=== PATIENT | male | born 1975 | race Caucasian/White ===

== ENCOUNTER 2023-12-14 14:25 | Inpatient (IN) | payer OTHER ==
[2023-12-14 16:55] VITALS: BMI 35.1
[2023-12-14] MEDS ORDERED: ONDANSETRON 4 MG/2 ML VIAL IV PRN (17:32)
[2023-12-14] MEDS: VANCOMYCIN 1 GM in NA CHLORIDE 0.9% 250 ML IVPB SCH (17:33)
--- NOTE | 2023-12-14 17:42 | P.HP ---
Certification for Inpatient Patient admitted to: Inpatient With expected LOS: >2 Midnights Patient will require the following post-hospital care: None Practitioner: I am a practitioner with admitting privileges, knowledge of patient current condition, hospital course, and medical plan of care. Services: Services provided to patient in accordance with Admission requirements found in Title 42 Section 412.3 of the Code of Federal Regulations Patient History Date of Service: 12/14/23 Reason for admission: Right mastoiditis History of Present Illness: 48-year-old male with history of diabetes mellitus type 2, hypertension, tobacco use, hyperlipidemia presented to stand-alone emergency department with chief complaint of right ear pain. He reports that he been having pain for 2 to 3 weeks now without improvement, started taking antibiotics about 3 days ago but was not having any improvement so went to the emergency department. Patient was evaluated at outside hospital stand-alone emergency department his labs were significant for a white blood cell count of 11.4 sodium of 149 glucose [address] head without contrast was also performed which revealed nonspecific obstructive or inflammatory fluid in the right middle ear and mastoid air cells. No bony coalescence. Correlate for right eustachian tube dysfunction and otomastoiditis. Patient was transferred to our facility for further management of suspected right mastoiditis. - Past Medical/Surgical History Has patient received pneumonia vaccine in the past: No Diabetic: Yes -: Anxiety -: DM -: HTN -: HLD -: LT toe sx Psychosocial/ Personal History: Works as a laborer [employer], lives at home with family - Family History Father -: Heart disease Notes: - Social History Smoking Status: Current every day smoker Alcohol use: No CD- Drugs: No Caffeine use: Yes Place of Residence: Home Review of Systems 10-point ROS is otherwise unremarkable General: Fever, Malaise ENT: Ear Pain, Ear Discharge Physical Examination - Vital Signs Temperature: 97.3 F Blood Pressure: 139/71 Pulse: 88 Respirations: 16 Pulse Ox (%): 93 - Physical Exam General: Alert, In no apparent distress, Oriented x3 HEENT: Atraumatic, PERRLA, Mucous membr. moist/pink, Other (Right ear canal erythematous, edematous with purulent drainage present), EOMI, Sclerae nonicteric Neck: Supple, 2+ carotid pulse no bruit Respiratory: Clear to auscultation bilaterally, Normal air movement Cardiovascular: Regular rate/rhythm, Normal S1 S2 Gastrointestinal: Normal bowel sounds, No tenderness Musculoskeletal: No tenderness Integumentary: No rashes Neurological: Normal speech, Normal strength at 5/5 x4 extr, Normal tone, Normal affect Assessment and Plan - Plan Assessment: Acute right mastoiditis Leukocytosis Hypernatremia Diabetes mellitus type 5xco-tryzpji-iebvnxjuq with hyperglycemia Hypertension Hyperlipidemia Tobacco use disorder Plan: Acute right mastoiditis Leukocytosis ENT consult Continue antibiotics vancomycin/cefepime for now Blood cultures ordered No clear abscess on imaging Monitor CBC/fevers Hypernatremia Gentle IV fluids with LR Recheck chemistry in the morning Diabetes mellitus type 3end-kxfeplm-wdzomjuau with hyperglycemia ACHS Accu-Chek, sliding scale insulin A1c in the morning Hypertension Hyperlipidemia Continue home medications Tobacco use disorder Counseled on need for cessation Offered NicoDerm patchpatient declined Discussed that he should not be walking outside to smoke-patient acknowledged DVT PPX: Lovenox Code status: Full Discharge Plan: Home Plan to discharge in: Greater than 2 days - Advance Directives Does patient have a Living Will: No Does patient have a Durable POA for Healthcare: No - Code Status/Comfort Care Code Status Assessed: Yes (Full code) Critical Care: No Time Spent Managing Pts Care (In Minutes): 64
[2023-12-14] MEDS: Ringers Lactate 1,000 ML IV SCH (18:00)
[2023-12-14] MEDS ORDERED: NA CHLORIDE 0.9% 1,000 ML IV SCH (18:00)
[2023-12-14] MEDS: MORPHINE 2 MG/ML SYR IV PRN (18:47)
[2023-12-14] MEDS: VANCOMYCIN 2 GM in NA CHLORIDE 0.9% 500 ML IVPB ONE (19:00)
[2023-12-14] MEDS: CEFEPIME 1 GM in NA CHLORIDE 0.9% 100 ML IV SCH (20:16)
[2023-12-14] MEDS: INSULIN REGULAR (HUMAN) 100 UNIT/ML SQ SCH (20:21)
[2023-12-14] MEDS ORDERED: VANCOMYCIN 1 GM/VIAL ONE (21:28)
[2023-12-14] MEDS ORDERED: NA CHLORIDE 0.9% 500 ML ONE (21:35)
[2023-12-14] MEDS: HYDROCODONE/APAP 7.5/325 MG TAB PO PRN (21:42)
[2023-12-14] MEDS: NICOTINE 21 MG/PAT TD SCH (22:19)
[2023-12-15] MEDS: ACETAMINOPHEN 325 MG TABLET PO PRN (00:03)
[2023-12-15 05:21] LABS: Absolute Basophils 0.2 K/uL (0-0.5); Absolute Eosinophils 0.8 K/uL (0-0.5); Absolute Lymphocytes (CBC) 2.2 K/uL (0.7-4.9); Absolute Monocytes 0.8 K/uL (0.1-1.3); Basophils % 1.4 % (0-1.3); Eosinophils % 7.3 % (0-4.4); Hematocrit 40.3 % (39.6-49.0); Hemoglobin 13.6 g/dL (13.6-17.9); Lymphocytes % 20.2 % (15.3-44.8); MCH 29.2 pg (27.0-35.0); MCHC 33.7 g/dL (32.0-36.0); MCV 86.6 fL (80-100); MPV 8.5 fL (7.6-11.3); Monocytes % 7.2 % (3.3-12.3); Neutrophils % 63.9 % (41.7-73.7); Platelets 292 thou/uL (152-406); RBC Red Blood Cell Count 4.65 M/uL (4.33-5.43); Red Cell Distribution Width 13.8 % (12.1-15.2)
[2023-12-15 05:33] LABS: Anion Gap 10.8 mEq/L (5.0-15.0); Potassium 3.8 mEq/L (3.5-5.1)
[2023-12-15] MEDS ORDERED: DICLOFENAC SOD D.R. 75 MG TAB PO PRN (06:09)
[2023-12-15] MEDS: VANCOMYCIN 2 GM in NA CHLORIDE 0.9% 500 ML IVPB SCH (08:00)
[2023-12-15] MEDS: ESCITALOPRAM 20 MG TAB PO SCH (08:45)
[2023-12-15] MEDS: lisinopriL 5 MG TAB PO SCH (08:45)
[2023-12-15] MEDS: METFORMIN HCL 500 MG TAB PO SCH (08:45)
[2023-12-15] MEDS: GABAPENTIN 300 MG CAP PO SCH (08:45)
[2023-12-15] MEDS: ENOXAPARIN 40 MG/0.4 ML SQ SCH (08:48)
[2023-12-15] MEDS: MORPHINE 2 MG/ML SYR IV PRN (08:48)
[2023-12-15] MEDS: BUPROPRION HCL S.R. 150MG TAB PO SCH (08:50)
--- NOTE | 2023-12-15 09:49 | P.PN ---
Date of Service: 12/15/23 Subjective: No acute events overnight Continues to complain of pain to right ear/scalp area ROS: 10 point ROS as noted above, otherwise negative General: Alert, In no apparent distress, Oriented x3 HEENT: Atraumatic, PERRLA, Mucous membr. moist/pink, Other (Right ear canal erythematous, edematous with purulent drainage present), EOMI, Sclerae nonicteric Neck: Supple, 2+ carotid pulse no bruit Respiratory: Clear to auscultation bilaterally, Normal air movement Cardiovascular: Regular rate/rhythm, Normal S1 S2 Gastrointestinal: Normal bowel sounds, No tenderness Musculoskeletal: No tenderness Integumentary: No rashes Neurological: Normal speech, Normal strength at 5/5 x4 extr, Normal tone, Normal affect Vitals reviewed Assessment: Acute right mastoiditis Leukocytosis Hypernatremia Diabetes mellitus type 9ufk-smgtlcz-vfzgvkhqg with hyperglycemia Hypertension Hyperlipidemia Tobacco use disorder Plan: Acute right mastoiditis Leukocytosis ENT consult WBC improving, afebrile Continue antibiotics vancomycin/cefepime Blood cultures ordered Lactate less than 2 No clear abscess on imaging Monitor CBC/fevers Hypernatremia Gentle IV fluids with LR Recheck chemistry in the morning Diabetes mellitus type 9zhh-seuylpz-whbkwifxc with hyperglycemia ACHS Accu-Chek, sliding scale insulin A1c pending Hypertension Hyperlipidemia Continue home medications Tobacco use disorder Counseled on need for cessation Offered NicoDerm patchpatient declined Discussed that he should not be walking outside to smoke-patient acknowledged DVT PPX: Lovenox Code status: Full Discharge Plan: Home Plan to discharge in: Greater than 2 days Time Spent Managing Pts Care (In Minutes): 35
[2023-12-15] MEDS: DICLOFENAC 75 MG DR TABLET PO PRN (10:23)
[2023-12-15] MEDS: OFLOXACIN OPH 0.3%-5 ML BTL OTIC SCH (12:25)
[2023-12-15] MEDS ORDERED: HOME MED 1 EA UNK (Simvastatin [Simvastatin] 20 MG Tablet) PO SCH (21:00)
[2023-12-15] MEDS: ATORVASTATIN 10 MG TAB PO SCH (21:01)
[2023-12-16 00:38] VITALS: O2SAT 93
[2023-12-16 07:37] LABS: Absolute Basophils 0.1 K/uL (0-0.5); Absolute Eosinophils 0.8 K/uL (0-0.5); Absolute Lymphocytes (CBC) 2.2 K/uL (0.7-4.9); Absolute Monocytes 0.7 K/uL (0.1-1.3); Absolute Neutrophil 7.7 K/uL (1.8-8.0); Basophils % 0.7 % (0-1.3); Eosinophils % 6.6 % (0-4.4); Hematocrit 41.6 % (39.6-49.0); Lymphocytes % 19.1 % (15.3-44.8); MCH 29.1 pg (27.0-35.0); MCHC 33.8 g/dL (32.0-36.0); MCV 86.3 fL (80-100); MPV 8.6 fL (7.6-11.3); Monocytes % 6.1 % (3.3-12.3); Neutrophils % 67.5 % (41.7-73.7); Platelets 295 thou/uL (152-406); RBC Red Blood Cell Count 4.82 M/uL (4.33-5.43); Red Cell Distribution Width 13.6 % (12.1-15.2)
[2023-12-16 07:54] LABS: Anion Gap 8.5 mEq/L (5.0-15.0); Potassium 4.5 mEq/L (3.5-5.1)
[2023-12-16 09:16] VITALS: TEMP 97.6
[2023-12-16] MEDS: VANCOMYCIN 1.5 GM in NA CHLORIDE 0.9% 500 ML IVPB SCH (10:55)
--- NOTE | 2023-12-16 13:07 | P.DS ---
Admission Date: 12/14/23 Discharge Date: 12/16/23 Disposition: ROUTINE DISCHARGE Discharge Condition: GOOD Reason for Admission: Right mastoiditis Consultations: ENT-Dr. Horne Brief History of Present Illness: 48-year-old male with history of diabetes mellitus type 2, hypertension, tobacco use, hyperlipidemia presented to stand-alone emergency department with chief complaint of right ear pain. He reports that he been having pain for 2 to 3 weeks now without improvement, started taking antibiotics about 3 days ago but was not having any improvement so went to the emergency department. Patient was evaluated at outside hospital stand-alone emergency department his labs were significant for a white blood cell count of 11.4 sodium of 149 glucose [address] head without contrast was also performed which revealed nonspecific obstructive or inflammatory fluid in the right middle ear and mastoid air cells. No bony coalescence. Correlate for right eustachian tube dysfunction and otomastoiditis. Patient was transferred to our facility for further management of suspected right mastoiditis. Hospital Course: Assessment: Acute right mastoiditis Leukocytosis Hypernatremia Diabetes mellitus type 3evd-gcyrkzt-yxmmeleyq with hyperglycemia Hypertension Hyperlipidemia Tobacco use disorder General: Alert, In no apparent distress, Oriented x3 HEENT: Atraumatic, PERRLA, Mucous membr. moist/pink, Other (Right ear canal erythematous, edematous with purulent drainage present), EOMI, Sclerae nonicter ic Neck: Supple, 2+ carotid pulse no bruit Respiratory: Clear to auscultation bilaterally, Normal air movement Cardiovascular: Regular rate/rhythm, Normal S1 S2 Gastrointestinal: Normal bowel sounds, No tenderness Musculoskeletal: No tenderness Integumentary: No rashes Neurological: Normal speech, Normal strength at 5/5 x4 extr, Normal tone, Normal affect Patient was admitted to the hospital for mastoiditis, otitis externa. Hae was initially treated with vancomycin and cefepime as well as ofloxacin drops. He was seen by ENT who recommended medical management and close follow-up. He has remained afebrile and clinically is improving. ENT recommends levofloxacin, ofloxacin drops, clotrimazole 1% solution otic for 10 days at discharge. Prescriptions for Levaquin, which resolved 1% solution for otic use, ofloxacin and as needed [place] sent to [facility] pharmacy in [place]. The clotrimazole was unable to be sent electronically and patient was given a handwritten prescription for this. Please follow-up with your primary care doctor 1 to 2 weeks Please follow-up with Dr. Garcia in 1 week Vital Signs/Physical Exam: Temp Pulse Resp BP Pulse Ox 97.6 F 98 H 16 148/78 H 98 12/16/23 08:00 12/16/23 08:38 12/16/23 09:10 12/16/23 08:38 12/16/23 09:10 Laboratory Data at Discharge: WBC 11.50 thou/uL (4.3-10.9) H 12/16/23 07:10 Hgb 14.0 g/dL (13.6-17.9) 12/16/23 07:10 Hct 41.6 % (39.6-49.0) 12/16/23 07:10 Plt Count 295 thou/uL (152-406) 12/16/23 07:10 Sodium 136 mEq/L (136-145) 12/16/23 07:10 Potassium 4.5 mEq/L (3.5-5.1) D 12/16/23 07:10 BUN 15 mg/dL (7-18) 12/16/23 07:10 Creatinine 0.75 mg/dL (0.70-1.30) 12/16/23 07:10 Glucose 273 mg/dL (74-106) H 12/16/23 07:10 Home Medications: Diclofenac Na [Voltaren D.r*] 75 mg PO BID PRN 12/14/23 Escitalopram [Lexapro*] 20 mg PO DAILY 12/14/23 Gabapentin 300 mg PO BID 12/14/23 Glipizide [Glipizide ER] 10 mg PO DAILY 12/14/23 Lisinopril [Zestril] 5 mg PO DAILY 12/14/23 Metformin HCl 1,000 mg PO BID 12/14/23 Simvastatin 20 mg PO BEDTIME 12/14/23 buPROPion HCL [Bupropion HCl Sr] 150 mg PO DAILY 12/14/23 Hydrocodone/Acetaminophen [Hydrocodon-Acetaminophen 5-325] 1 tab PO Q6H PRN #15 tab 12/16/23 Ofloxacin Oph [Floxin Otic 0.3%*] 4 gtt OTIC BID #1 bottle 12/16/23 levoFLOXacin [Levofloxacin] 750 mg PO DAILY 10 Days #10 tab 12/16/23 New Medications: Ofloxacin Oph [Floxin Otic 0.3%*] 4 gtt OTIC BID #1 bottle Hydrocodone/Acetaminophen [Hydrocodon-Acetaminophen 5-325] 1 tab PO Q6H PRN #15 tab PRN Reason: Pain Scale 8-10 (Severe) levoFLOXacin [Levofloxacin] 750 mg PO DAILY 10 Days #10 tab Physician Discharge Instructions: Patient was admitted to the hospital for mastoiditis, otitis externa. Hae was initially treated with vancomycin and cefepime as well as ofloxacin drops. He was seen by ENT who recommended medical management and close follow-up. He has remained afebrile and clinically is improving. ENT recommends levofloxacin, ofloxacin drops, clotrimazole 1% solution otic for 10 days at discharge. Prescriptions for Levaquin, which resolved 1% solution for otic use, ofloxacin and as needed [place] sent to [facility] pharmacy in [place]. The clotrimazole was unable to be sent electronically and patient was given a handwritten prescription for this. Please follow-up with your primary care doctor 1 to 2 weeks Please follow-up with Dr. Garcia in 1 week Diet: ADA Activity: Ad zayra Followup: Mamie Horne DO [ACTIVE - CAN ADMIT] - 1 Week Efrem Pereira DO [Primary Care Provider] - 1-2 Weeks Time spent managing pt's care (in minutes): 42
[2023-12-16 13:17] VITALS: BP 140/70
--- NOTE | 2023-12-16 14:00 | CON ---
Date of Consultation: 12/15/2023 Chief Complaint: Severe right ear pain. History Of Present Illness: The patient is a 48-year-old male with a history of diabetes mellitus type 2, hypertension, tobacco use, hyperlipidemia, who presented to the emergency department with chief complaint of severe right ear pain. He has been experiencing this pain for approximately 2-3 weeks, and has had no prior history of ear infections, otomastoiditis, ear surgery. He admits to cleaning his right ear as his hearing was muffled and he believes that this caused the pain to worsen. He did start taking oral antibiotics 3 days ago, but was not having any appreciable improvement in his symptoms, so he presented to the emergency room and was evaluated at an outside hospital, [facility]. His labs initially were significant for white blood cell count of 11.4, sodium of 149, glucose of 222, and creatinine 0.8. A CT of the head without contrast was also performed, which revealed nonspecific obstructive or inflammatory fluid in the right middle ear and mastoid air cells with no evidence of bony coalescence and recommendations to assess for acute right eustachian tube dysfunction and otomastoiditis. He was then transferred to our facility for further management of suspected right mastoiditis. He was then subsequently admitted to the medical floor and placed on Maxipime and vancomycin IV antibiotics. I was consulted for further evaluation and treatment. Upon arrival to bedside, the patient is sitting and eating breakfast and in no acute distress. He states that the ear pain is much improved after starting the IV antibiotics. He does have tenderness to palpation located in the postauricular area of the scalp as well as the auricle itself. He still reports right aural fullness, but denies ear drainage. He states his hearing was normal prior to this event. No other ENT complaints today. Past Medical History: As mentioned above, and anxiety. Past Surgical History: Surgery of the left toe. 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 Family History: Father for heart disease, . Social History: The patient smokes approximately 1 pack per day. No alcohol or illicit drugs. Review of Systems: Head: Positive for right temporoparietal scalp pain extending into the right postauricular area of the scalp and neck. Eyes: Negative for drainage, blurred or double vision. Ears: Positive for right aural fullness, right ear pain improved within the past 8 hours, right auricular swelling and redness. Nose: Negative for drainage, postnasal drip, rhinorrhea, nasal congestion, nasal obstruction. Oral Cavity: Negative for sore throat, dysphagia, or swelling. Neck: Negative for lymph node enlargement or thyromegaly. Physical Examination: Vital Signs: Stable. General: Patient is awake, alert, and oriented to person, place, and time with no evidence of lethargy. Eyes: PERRLA/EOMI. Ears: Left ear auricle is normal size. No evidence of swelling or pain upon palpation. Left ear: canal intact. No evidence of drainage. Tympanic membrane is intact. No evidence of perforation, middle ear effusion, or atelectasis. Right ear: Mild auricular swelling with erythema. Moderate edema, erythema of the lateral external auditory canal. Appears there is fungal and bacterial debris noted medially and tympanic membrane is nonvisualized secondary to edema. The patient is tender upon palpation of the auricle and upon percussion of the postauricular temporal bone. No evidence of swelling or erythema of the skin overlying the mastoid bone. Nose: Midline septum. Patent nasal cavities. No rhinorrhea. Oral Cavity: Missing upper and lower teeth with poor dentition. Oral cavity is intact. Posterior oropharynx with midline uvula. No exudate or mass. Mild erythema, most likely from tobacco use. Neck: Supple. Trachea midline. No lymphadenopathy or thyromegaly palpated. Diagnoses: 1. Right acute otomastoiditis, improved on Maxipime and vancomycin IV. 2. Acute right otitis externa. Recommendations: 1. Continue Maxipime and vancomycin. Recommendations are to continue IV antibiotics for approximately 48 hours before discharging home. We will start ofloxacin ear drops 4 drops twice daily, right ear canal. 2. When the patient is ready for discharge, he is to be discharged on fluoroquinolone, preferably levofloxacin 750 mg daily, ofloxacin or Ciprodex Otic ear drops 4 drops right ear twice daily, and then add clotrimazole 1% solution 4 drops b.i.d./t.i.d. to the right ear canal. 3. Patient is to follow up in my office in 7-10 days for debridement of the right ear canal once the swelling has improved. 4. The patient was instructed not to clean the ear with any irrigation or cotton swabs. Thank you, Dr. Leigh, for this most interesting consultation. SIALS/TO Voice ID: [id number] Report ID: [id number] RANI
[2023-12-16] MEDS ORDERED: CEFEPIME 2 GM in NA CHLORIDE 0.9% 100 ML IV SCH (21:00)
== END 2023-12-16 12:40 | disposition home or self-care (01) | DRG 153 ==
LOC: 2ND 14:25
PROVIDERS: ADMIT Hospitalist; ATTEND Hospitalist
DX: H70.91 Unspecified mastoiditis, right ear (principal); E87.0 Hyperosmolality and hypernatremia; I10 Essential (primary) hypertension; E78.5 Hyperlipidemia, unspecified; E11.65 Type 2 diabetes mellitus with hyperglycemia; H60.501 Unspecified acute noninfective otitis externa, right ear; F17.200 Nicotine dependence, unspecified, uncomplicated; Z71.6 Tobacco abuse counseling; Z79.84 Long term (current) use of oral hypoglycemic drugs; Z79.899 Other long term (current) drug therapy
CPT/HCPCS: 36415; 80048; 80202; 82947; 83036; 83605; 85025; 87040; J0692; J1650; J2270; J7040; J7050; J7120

== ENCOUNTER 2024-01-02 05:56 | Day surgery (SDC) | payer OTHER ==
[2024-01-02] MEDS: NA CHLORIDE 0.9% 1,000 ML ONE (07:00)
[2024-01-02] MEDS ORDERED: NA CIT/CITRIC AC 30 ML ORAL UDC ONE (07:01)
[2024-01-02 07:11] LABS: Anion Gap 8.8 mEq/L (5.0-15.0); Potassium 3.8 mEq/L (3.5-5.1)
[2024-01-02] MEDS ORDERED: INSULIN REGULAR (HUMAN) 100 UNIT/ML ONE (07:25)
[2024-01-02] MEDS ORDERED: propofoL 200 MG/20 ML VIAL IV ONE (09:13)
[2024-01-02] MEDS ORDERED: MIDAZOLAM HCL 2 MG/2 ML INJ ONE (09:13)
[2024-01-02] MEDS ORDERED: LIDOCAINE 1% MPF 5 ML VIAL ONE (09:13)
[2024-01-02] MEDS: OXYMETAZOLINE HCL 0.05% 15ML NAS ONE (09:34)
[2024-01-02] MEDS ORDERED: Phenylephrine HCl 10 MG/ML 1 ML VIAL ONE (09:36)
[2024-01-02] MEDS ORDERED: KETOROLAC 30 MG/ML INJ ONE (09:44)
[2024-01-02] MEDS: OFLOXACIN OPH 0.3%-5 ML BTL ONE (09:58)
--- NOTE | 2024-01-02 11:48 | EKG ---
Test Date: 2024-01-02 Test Time: 07:15:34 [employer] Tech: PREO MEASUREMENT RESULTS: Intervals: Rate: 94 [place]: 150 QRSD: 106 QT: 372 QTc: 465 [place]: P: 42 [place]: 150 QRS: 86 T: 22 INTERPRETIVE STATEMENTS: Normal sinus rhythm Cannot rule out Inferior infarct, age undetermined Abnormal ECG No previous ECG available for comparison Electronically Signed On 01-02-24 11:46:56 CDT by Stanton Mora
[2024-01-02 11:56] VITALS: BP 110/66; TEMP 96.9; O2SAT 97
--- NOTE | 2024-01-03 09:51 | OP ---
Date of Procedure: 01/02/2024 Surgeon: JOVAN ORTIZ Preoperative Diagnosis: Acute right mastoiditis/otitis media. Postoperative Diagnosis: Acute right mastoiditis/otitis media. Procedure: Right myringotomy under general sedation. Anesthesia: General LMA anesthesia was administered. Estimated Blood Loss: Less than 5 mL. Specimens: None. Findings: Moderate right ear canal edema/erythema, right tympanic membrane bulging with diffuse myri ngitis, mucopurulent right middle ear effusion. Complications: None. Disposition: Stable. The patient tolerated the procedure well. Indication For Procedure: The patient is a 48-year-old male, he is a type 1 insulin-dependent diabet ic with hemoglobin A1c over 11, who presented to my outpatient clinic with severe right ear pain. He presented to the emergency room subsequently to see me and was found that he had acute right mastoid itis and otitis media involving the right ear. He was placed on IV antibiotics and subsequently disc harged home on oral antibiotics and presented to my office. He says he still had severe right tempor al scalp pain extending into the right jaw and ear. Upon examination in my office, the patient had s ignificant right external auditory canal edema and erythema and bulging right tympanic membranes sugg estive of mucopurulent middle ear effusion extending into the right mastoid. These are indications t o bring the patient to operative suite for the above-mentioned procedure. He understood, all questio ns were answered. Risks versus benefits and complications were explained in detail and a consent for m was signed which was placed in the chart. Description Of Procedure: The patient was transferred from the preoperative holding area to the oper ative suite by Department of Anesthesia, placed on the operating table supine, sedated, and an LMA wa s placed. A Zeiss microscope with auto-focus/zoom lens was utilized to examine the right ear. A 6 m m angled speculum was placed in the lateral end of the right ear canal. The patient had significant edema involving the canal. A moderate amount of mucopurulent debris was removed with a #5 Bryan suct ion down to the level of the tympanic membrane which was diffusely swollen and bulging. A wide myrin gotomy was made with a myringotomy knife and a moderate amount of mucopurulent effusion mixed with bl ood was removed with a #5 Bryan suction. The middle ear was irrigated with saline and Afrin. We irr igated the middle ear with approximately 50 mL of sterile saline. It Afrin was used for hemostasis. Due to the diffuse swelling and granulation of the tympanic membrane, a myringotomy tube would most likely not stay. Thus, antibiotic drops were placed into the canal and a cotton ball was placed into the meatal opening. The patient was transferred back to Department of Anesthesia in [facility], where he was subsequently awakened and transferred to postoperative care unit. He is currently on oral levofloxacin. He will continue his antibiotics and use ofloxacin drops twice daily and will fo llow up in 1 to 2 weeks or sooner if needed. SILAS/TO Voice ID: [id number] Report ID: [id number]
== END 2024-01-02 11:20 | disposition home or self-care (01) ==
LOC: OR 05:56
PROVIDERS: ATTEND Otolaryngology Facial Plastic Surgery
PROC: 099570Z Drainage of Right Middle Ear with Drainage Device, Via Natural or Artificial Opening (ICD-10-PCS; principal; 2024-01-02 08:45)
DX: H66.001 Acute suppurative otitis media without spontaneous rupture of ear drum, right ear (principal); H70.001 Acute mastoiditis without complications, right ear
CPT/HCPCS: 36415; 80048; 82947; 93005; J2001; J2250; J2371; J2704; J7030

== ENCOUNTER 2024-06-08 11:50 | Day surgery (SDC) | payer OTHER ==
[2024-06-08] MEDS ORDERED: propofoL 200 MG/20 ML VIAL IV ONE (12:05)
[2024-06-08] MEDS ORDERED: MIDAZOLAM HCL 2 MG/2 ML INJ ONE (12:05)
[2024-06-08] MEDS ORDERED: KETOROLAC 30 MG/ML INJ ONE ×2 (12:05→12:06)
[2024-06-08] MEDS ORDERED: FENTANYL CITR 100 MCG/2 ML ONE (12:05)
[2024-06-08] MEDS ORDERED: LIDOCAINE 1% MPF 5 ML VIAL ONE (12:05)
[2024-06-08] MEDS: NA CHLORIDE 0.9% 1,000 ML ONE (12:15)
[2024-06-08] MEDS: CEFAZOLIN SODIUM 2 GM/VIAL ONE (12:45)
[2024-06-08] MEDS: LIDOCAINE HCL/EPINEPHRINE 20 ML MDV ONE (13:01)
[2024-06-08] MEDS ORDERED: GLYCOPYRROLATE 0.2 MG/ML SYR ONE (13:16)
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
[2024-06-08 13:44] VITALS: O2SAT 99
[2024-06-08] MEDS: HYDROCODONE/APAP 7.5/325 MG TAB ONE (14:18)
[2024-06-08 14:59] VITALS: BP 128/63; TEMP 97
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
== END 2024-06-08 14:44 | disposition home or self-care (01) ==
LOC: OR 11:50
PROVIDERS: ATTEND Surgery
PROC: 0JD83ZZ Extraction of Abdomen Subcutaneous Tissue and Fascia, Percutaneous Approach (ICD-10-PCS; principal; 2024-06-08 13:30)
DX: S31.139A Puncture wound of abdominal wall without foreign body, unspecified quadrant without penetration into peritoneal cavity, initial encounter (principal); I96 Gangrene, not elsewhere classified
CPT/HCPCS: 87070; 87205 ×2; 82947 ×2; 88304; 87075; 11042; 11045 ×2; J2704; J2003; J2250; J3010; J7030